=== PATIENT | female | born 1985 | race Caucasian/White ===

== ENCOUNTER 2017-08-06 14:01 | Outpatient (CLI) | payer OTHER ==
--- NOTE | 2017-08-06 17:00 | ULT ---
OB ULTRASOUND: 08/06/17 Real time images of the pelvis shows a single viable intrauterine in cephalic presentation . The placenta is posterior in location without evidence of previa. Amniotic fluid is adequate for th is stage of . Amniotic fluid index is 15. The heart rate is 153 beats per minute. Review of anatomy shows no anomalies detected. measurements are as follows: BPD 6.2 cm 25 weeks, 0 days Head circumference 22.0 cm 24 weeks, 0 days Abdominal circumference 19.2 cm 24 weeks, 0 days Femur length 3.8 cm 22 weeks, 2 days IMPRESSION: 1. Single viable intrauterine in cephalic presentation. Overall measurements correspon d to a gestational age of 23 weeks and 4 days. Estimated date of delivery is 11/29/17. 2. Placenta which is posterior in location without evidence of previa. POS: [facility]
== END 2017-08-06 14:02 | disposition home or self-care (01) ==
LOC: ULT 14:01
PROVIDERS: ATTEND Family Medicine
DX: Z34.92 Encounter for supervision of normal pregnancy, unspecified, second trimester (principal); Z3A.20 20 weeks gestation of pregnancy
CPT/HCPCS: 76805

== ENCOUNTER 2017-11-09 10:36 | Day surgery (SDC) | payer OTHER ==
[2017-11-09 11:06] VITALS: BMI 29.0
[2017-11-09 11:08] VITALS: BP 105/66; TEMP 98.5
--- NOTE | 2017-11-09 13:57 | ULT ---
BIOPHYSICAL PROFILE: 11/09/2017 HISTORY: wellbeing. Unable to detect heart tones in the physician's office. FINDINGS: There is a single intrauterine gestation in a cephalic presentation. Cardiac Doppler does demonstrat e heart tones with a heart rate of 145 beats per minute. There is a normal amount of amn iotic fluid with an amniotic fluid index of 13.6 cm. The placenta was not imaged on this examination, but imaging of the lower uterine segment does not de monstrate evidence of placenta previa. A score of 2 each was obtained for tone, breathing, movement, and amniotic fluid vo lume. IMPRESSION: 1. Single intrauterine gestation, in cephalic presentation, with heart tones documented. 2. Amniotic fluid index measuring 13.6 cm. 3. Total biophysical profile score 8/8. POS: [facility]
--- NOTE | 2017-11-09 21:21 | CON ---
DATE OF CONSULTATION: 11/09/2017 HISTORY OF PRESENT ILLNESS: This is a 32-year-old white female G2, P0 at 37 weeks gestation presente d to L&D for nonreassuring heart tone in the office today. The patient has had an uncomplicate d course. She has done very well. She has been seen on a regular basis. This morning in t he office, heart tones were being checked and a heart tone of 70 was noted. This was rep eated about a minute later and then the heart tone came back to 140s. This was somewhat nonreassurin g and therefore, the patient was sent here to Labor and Delivery for evaluation. PAST MEDICAL HISTORY: Unremarkable except for one spontaneous AB. PAST SURGICAL HISTORY: None. FAMILY AND SOCIAL HISTORY: Unremarkable. PHYSICAL EXAMINATION: VITAL SIGNS: Stable and afebrile. HEART AND LUNGS: Clear. ABDOMEN: Soft, gravid. EXTREMITIES: No edema present. ASSESSMENT: 1. Nonreassuring heart rate in the office. 2. 37-week intrauterine . PLAN: The patient was sent here to L&D. A BPP was obtained, which was an 8/8 as well as a NST, whic h was 2/2. Mother is debbie every 3-4 minutes and with mild contractions. heart tones ar e very reactive, reassuring, 150s with marked [id number] variability. Category 1 tracing. The pat ient did have 2 decels initially when she first came in and was being set up not returned . Plan to see this patient in the office in 2 days.
== END 2017-11-09 13:23 | disposition home or self-care (01) ==
LOC: L&D/OP 10:36
PROVIDERS: ATTEND Family Medicine
DX: O76 Abnormality in fetal heart rate and rhythm complicating labor and delivery (principal); Z3A.37 37 weeks gestation of pregnancy
CPT/HCPCS: 59025; 76819; 87081; 96360; 96361; 99283

== ENCOUNTER 2017-11-22 05:30 | Inpatient (IN) | payer OTHER ==
[2017-11-23] MEDS ORDERED: HYDROcodone/Acetaminophen 5/325 mg Tablet PO PRN ×2 (07:30→16:19)
[2017-11-23] MEDS ORDERED: Ibuprofen 800 MG TAB PO PRN (07:30)
[2017-11-23] MEDS ORDERED: Misoprostol 200 MCG TAB PR PRN (07:30)
[2017-11-23] MEDS ORDERED: Lidocaine 1% (PF) 30 ML VIAL SC PRN (07:30)
[2017-11-23] MEDS ORDERED: NS w/ Oxytocin 10 units 500 ML IV SCH (07:30)
[2017-11-23] MEDS ORDERED: Acetaminophen 500 MG TAB PO PRN (07:30)
[2017-11-23] MEDS ORDERED: Ondansetron HCl/PF 4 MG/2 ML Vial IVP PRN ×2 (07:30→09:46)
[2017-11-23] MEDS ORDERED: Zolpidem Tartrate 5 MG TAB PO PRN (07:30)
[2017-11-23] MEDS ORDERED: NS / Oxytocin 40 units/1000ml 1,000 ML IV PRN (07:30)
[2017-11-23] MEDS ORDERED: Promethazine HCl 25 MG/ML VIAL IM PRN ×2 (07:30→09:46)
[2017-11-23] MEDS ORDERED: Butorphanol Tartrate 1 MG/ML VIAL SLOW IVP PRN ×2 (07:30→08:31)
[2017-11-23 07:40] VITALS: BMI 29.5
[2017-11-23] MEDS: Lactated Ringer's 1,000 ML IV SCH ×2 (08:05→09:19)
[2017-11-23 08:22] LABS: Hemoglobin 11.5 g/dL (12.0-16.0); Mean Corpuscular HGB CONC 34.8 g/dL (32.0-36.0); Mean Corpuscular Hemoglobin 31.7 pg (27.0-31.0); Mean Corpuscular Volume 91.2 fL (78.0-98.0); Mean Platelet Volume 6.7 fL (7.4-10.4); Platelet Count 197 thou/uL (130-400); RBC Distribution Width 11.5 % (11.5-14.5); Red Blood Cell (RBC) Count 3.63 mill/uL (4.20-5.40); White Blood Cell (WBC) Count 10.4 thou/uL (4.8-10.8)
[2017-11-23] MEDS ORDERED: Bupivacaine 0.75% 13.4 ML, fentaNYL Citrate/PF 400 MCG in Sodium Chloride 0.9% 78.6 ML EPIDURAL SCH (08:30)
[2017-11-23] MEDS ORDERED: Butorphanol Tartrate 1 MG/ML VIAL ONE (08:30)
[2017-11-23] MEDS ORDERED: DISCONTINUE ALL PREVIOUS NARCOTICS FS SCH (08:30)
[2017-11-23 09:03] LABS: HBSAg Index 0.14 S/CO (0-0.99); Hep B Surf Ag Non-Reactive S/CO (NonReactive)
[2017-11-23] MEDS ORDERED: Eucerin (Mineral Oil/Petrolatum,White) 30 gm Jar TOP PRN (09:46)
[2017-11-23] MEDS ORDERED: Naloxone HCl 0.4 mg/ml Vial IVP PRN ×2 (09:46)
[2017-11-23] MEDS ORDERED: Lactated Ringer's 500 ML IV PRN (09:46)
[2017-11-23] MEDS ORDERED: ePHEDrine/0.9% NaCl/PF SYRINGE 50 mg/10 ml SLOW IVP PRN (09:46)
[2017-11-23] MEDS ORDERED: diphenhydrAMINE 50 MG/ML VIAL IVP PRN (09:46)
[2017-11-23] MEDS ORDERED: Acetaminophen 325 MG TAB PO PRN (09:46)
[2017-11-23] MEDS ORDERED: fentaNYL Citrate/PF 400 MCG, Bupivacaine 0.5% 20 ML in Sodium Chloride 0.9% 72 ML EPIDURAL SCH (10:00)
[2017-11-23] MEDS ORDERED: Communication Order-Pharmacy FS SCH (10:00)
[2017-11-23] MEDS ORDERED: Bupivacaine 0.25% HCL 30 ML VIAL ONE (11:11)
[2017-11-23] MEDS ORDERED: Bisacodyl 10 MG SUPP PR PRN (16:19)
[2017-11-23] MEDS ORDERED: Adacel (T-DAP) 0.5 ML VIAL IM ONE (16:19)
[2017-11-23] MEDS ORDERED: diphenhydrAMINE 25 MG CAP PO PRN (16:19)
[2017-11-23] MEDS ORDERED: NS / Oxytocin 40 units/1000ml 1,000 ML IV SCH (16:19)
[2017-11-23] MEDS ORDERED: Lanolin Ointment 7 GM TUBE TOP PRN (16:19)
[2017-11-23] MEDS ORDERED: Milk Of Magnesia 30 ML UDCUP PO PRN (16:19)
[2017-11-23] MEDS ORDERED: Misoprostol 200 MCG TAB VAG PRN (16:19)
--- NOTE | 2017-11-23 16:36 | OP ---
PREOPERATIVE DIAGNOSES: 1. Term . 2. Active labor. POSTOPERATIVE DIAGNOSES: 1. Term . 2. Active labor. PROCEDURE: Spontaneous vaginal delivery with repair of midline second degree episiotomy. ANESTHESIA: Epidural. PROCEDURE IN DETAIL: A 32-year-old white female, , taken to delivery room complete and pushi ng, prepped and draped sterilely. Delivered a baby boy with Apgars 8 at 1 minute, 9 at 5 minutes. B sonia did breathe and cry vigorously upon delivery. Delivered placenta, 3-vessel intact. Repaired a midline episiotomy with 3-0 chromic. Repaired 2 small vaginal wall tears with one single interrupted stitch of 3-0 chromic. Estimated blood loss was 350 mL. Mother and baby did well.
[2017-11-23 17:25] LABS: Syphilis Antibody Nonreactive (Nonreactive); Syphilis Antibody Index 0.04 S/CO (<1.00 Non-Reactive)
[2017-11-23] MEDS: Ferrous Sulfate 325 MG TAB PO SCH (18:07)
[2017-11-23] MEDS: Docusate Calcium (SURFAK) 240 MG CAP PO SCH (21:44)
[2017-11-24 07:07] LABS: Hemoglobin 9.9 g/dL (12.0-16.0); Mean Corpuscular HGB CONC 33.6 g/dL (32.0-36.0); Mean Corpuscular Hemoglobin 31.4 pg (27.0-31.0); Mean Corpuscular Volume 93.6 fL (78.0-98.0); Mean Platelet Volume 6.6 fL (7.4-10.4); Platelet Count 168 thou/uL (130-400); RBC Distribution Width 11.7 % (11.5-14.5); Red Blood Cell (RBC) Count 3.16 mill/uL (4.20-5.40); White Blood Cell (WBC) Count 12.4 thou/uL (4.8-10.8)
[2017-11-24] MEDS: Ferrous Sulfate 325 MG TAB PO SCH ×2 (08:22→15:21)
[2017-11-24] MEDS: Docusate Calcium (SURFAK) 240 MG CAP PO SCH ×2 (08:22→22:14)
[2017-11-24] MEDS: Prenatal Vitamin 1 TAB PO SCH (08:22)
[2017-11-24] MEDS: Ibuprofen 800 MG TAB PO PRN ×2 (14:26→22:14)
[2017-11-25] MEDS: Ferrous Sulfate 325 MG TAB PO SCH (08:11)
[2017-11-25] MEDS: Docusate Calcium (SURFAK) 240 MG CAP PO SCH (08:11)
[2017-11-25] MEDS: Prenatal Vitamin 1 TAB PO SCH (08:11)
[2017-11-25 08:31] VITALS: BP 106/59; TEMP 98.1
== END 2017-11-25 10:00 | disposition home or self-care (01) | DRG 775 ==
LOC: L&D 11-23 06:56 → 3SW 11-23 16:38
PROVIDERS: ADMIT Family Medicine; ATTEND Family Medicine
PROC: 10E0XZZ Delivery of Products of Conception, External Approach (ICD-10-PCS; principal; 2017-11-23)
PROC: 0W8NXZZ Division of Female Perineum, External Approach (ICD-10-PCS; 2017-11-23)
PROC: 0UQG7ZZ Repair Vagina, Via Natural or Artificial Opening (ICD-10-PCS; 2017-11-23)
PROC: 10907ZC Drainage of Amniotic Fluid, Therapeutic from Products of Conception, Via Natural or Artificial Opening (ICD-10-PCS; 2017-11-23)
DX: O71.4 Obstetric high vaginal laceration alone (principal); O76 Abnormality in fetal heart rate and rhythm complicating labor and delivery; Z37.0 Single live birth; Z82.79 Family history of other congenital malformations, deformations and chromosomal abnormalities; Z82.69 Family history of other diseases of the musculoskeletal system and connective tissue
CPT/HCPCS: 36415; 51702; 85027; 86780; 86850; 86900; 86901; 87340; J0595; J2001; J3010; J7050; S0020

== ENCOUNTER 2020-11-01 13:19 | Observation (INO) | payer BC, SELFPAY ==
[2020-11-01 15:15] LABS: #Eosinphils 0.1 thou/uL (0.0-0.7); #Lymphocytes 1.6 thou/uL (1.20-3.40); #Monocytes 0.5 thou/uL (0.11-0.59); #Neutrophils 5.4 thou/uL (1.40-6.50); %Basophils 0.5 % (0.0-1.0); %Eosinophils 1.6 % (0.0-10.0); %Lymphocytes 20.8 % (21.0-51.0); Hemoglobin 14.1 g/dL (12.0-16.0); Mean Corpuscular HGB CONC 32.9 g/dL (32.0-36.0); Mean Corpuscular Hemoglobin 30.5 pg (27.0-31.0); Mean Corpuscular Volume 92.7 fL (78.0-98.0); Mean Platelet Volume 6.6 fL (7.4-10.4); Platelet Count 345 thou/uL (130-400); RBC Distribution Width 11.9 % (11.5-14.5); Red Blood Cell (RBC) Count 4.63 mill/uL (4.20-5.40); White Blood Cell (WBC) Count 7.6 thou/uL (4.8-10.8)
[2020-11-01 15:19] LABS: MONO NEGATIVE CONTROL ZONE White (Negative) (White); MONO POSITIVE CONTROL Pink Line (Positive) (PINK/RED); Mononucleosis NEGATIVE (NEGATIVE)
[2020-11-01 15:20] LABS: BHCG - Serum Negative (NEGATIVE); Pregs Control Background? CLEAR/WHITE (CLR/WHITE); Pregs Control Bar Appear? YES (CONTROL BAR)
[2020-11-01] MEDS ORDERED: Lidocaine 1% PF 5 ML VIAL ONE (15:20)
[2020-11-01 15:26] LABS: INR-International Normal Ratio 1.1; PTT 37.7 sec (22.9-36.1)
[2020-11-01] MEDS ORDERED: Midazolam HCl 2 mg/2 ml Vial ONE (15:28)
[2020-11-01] MEDS ORDERED: Midazolam HCl 2 mg/2 ml Vial IVP SCH (15:30)
[2020-11-01 15:36] LABS: CRP (Inflammatory) 0.64 mg/dL (= or < 0.5)
[2020-11-01 15:36] LABS: Bacteria/HPF None Seen HPF (None Seen); Bilirubin Negative (Negative); Blood, Urine Negative (Negative); Clarity Clear (Clear); Glucose, Urine (Dipstick) Normal (Negative); Ketone, Urine Negative (Negative); Leukocyte 75 Leu/uL (Negative); Nitrite Negative (Negative); Protein, Urine (Dipstick) Negative (Neg-Trace); RBC/HPF 0-3 HPF (0-3); Specific Gravity, Urine 1.011 (1.002-1.036); Squamous Epithelial 0-3 HPF (0-3); Urobilinogen Normal mg/dL (Less than 2); WBC/HPF 0-3 HPF (0-3); pH, Urine 7.5 (5.0-9.0)
[2020-11-01 15:44] LABS: ALT (SGPT) 12 U/L (8-55); AST (SGOT) 29 U/L (5-34); Albumin 3.9 g/dL (3.5-5.0); Alkaline Phosphatase 70 U/L (40-110); Anion Gap 15 mmol/L (10-20); BUN (Urea Nitrogen) 7 mg/dL (7.0-18.7); Bilirubin, Total 0.4 mg/dL (0.2-1.2); Calc. Creatinine Clearance 0 mL/min (70-130); Carbon Dioxide 23 mmol/L (22-29); Chloride 104 mmol/L (98-107); Globulin 3.9 g/dL (2.4-3.5); Glucose 83 mg/dL (70-105); Potassium 5.3 mmol/L (3.5-5.1); Protein, Total 7.8 g/dL (6.0-8.3); Sodium 137 mmol/L (136-145)
[2020-11-01 15:56] LABS: HIV (1/2) Antibody/Antigen Non-Reactive (NonReactive); HIV 1/2 INDEX 0.09 S/CO (<1.00)
[2020-11-01 16:17] LABS: Color Of CSF Supernatant COLORLESS (Colorless); Unspun CSF Color COLORLESS (Colorless)
[2020-11-01 16:18] LABS: Tube # 1
[2020-11-01 16:29] LABS: CSF, Glucose 46 mg/dl (40-70); CSF, Protein 69 mg/dL (15-40)
[2020-11-01] MEDS ORDERED: Procaine Penicillin 1,200,000 UNITS/2 ML SYRINGE IM SCH (16:45)
[2020-11-01 16:55] LABS: CSF Source CSF; Clarity Clear (Clear); Tube # 4
[2020-11-01 16:56] LABS: CSF RBC Count - Manual 3 /cu.mm (None Seen); CSF WBC/NonHematics Count-Man 161 /cu.mm (0-5)
[2020-11-01 16:59] LABS: Cell Count Non Hematic 11 %; Lymphocytes 83 %; Segmented Neutrophils 6 %
[2020-11-01] MEDS ORDERED: Bicillin CR 1.2 MILL UNITS/2 ML SYRINGE IM SCH (17:00)
[2020-11-01] MEDS ORDERED: Acetaminophen 500 MG TAB ONE (17:08)
[2020-11-01] MEDS ORDERED: hydrALAZINE 20 MG/ML VIAL SLOW IVP PRN (19:51)
[2020-11-01 20:00] VITALS: BMI 23.2
[2020-11-01] MEDS: Morphine 2 MG/ML VIAL SLOW IVP PRN (20:10)
[2020-11-01] MEDS ORDERED: Ondansetron ODT 4 MG TAB SL PRN (20:45)
[2020-11-01] MEDS ORDERED: Acetaminophen 325 MG TAB PO PRN (20:45)
[2020-11-01] MEDS ORDERED: Ondansetron PF 4 MG/2 ML Vial IVP PRN (20:45)
[2020-11-01] MEDS ORDERED: Penicillin G Potassium 4,000,000 UNITS in Syringe 0 ML IVPB SCH (21:00)
[2020-11-01 23:32] LABS: Anion Gap 13 mmol/L (10-20); BUN (Urea Nitrogen) 8 mg/dL (7.0-18.7); Calc. Creatinine Clearance 93 mL/min (70-130); Calcium 8.7 mg/dL (7.8-10.44); Carbon Dioxide 26 mmol/L (22-29); Chloride 105 mmol/L (98-107); Glucose 91 mg/dL (70-105); Potassium 3.7 mmol/L (3.5-5.1); Sodium 140 mmol/L (136-145)
[2020-11-02 00:22] LABS: SARS-CoV-2 PCR by NAA Not Detected (NotDetected)
[2020-11-02] MEDS: Penicillin G Potassium 4 MILL.UNITS in Sodium Chloride 0.9% 50 ML IVPB SCH ×3 (04:54→12:24)
[2020-11-02] MEDS ORDERED: Penicillin G Potassium 4 MILL.UNITS in Sodium Chloride 0.9% 100 ML IVPB SCH (05:00)
[2020-11-02] MEDS ORDERED: Procaine Penicillin 1,200,000 UNITS/2 ML SYRINGE IM SCH (09:00)
[2020-11-02] MEDS ORDERED: metroNIDAZOLE 500 MG TAB PO SCH (14:15)
[2020-11-02] MEDS: Sodium Chloride 0.9% 1,000 ML IV SCH ×2 (14:19→22:20)
[2020-11-02] MEDS: cefTRIAXone\\ROCEPHIN 2 GM in Sodium Chloride 0.9% 100 ML IVPB SCH (16:09)
[2020-11-02] MEDS ORDERED: Doxycycline 100 MG CAP PO SCH ×2 (16:15→21:00)
[2020-11-02] MEDS: Morphine 2 MG/ML VIAL SLOW IVP PRN ×2 (17:34→21:21)
[2020-11-02] MEDS: metroNIDAZOLE 500 MG TAB PO SCH (22:20)
[2020-11-03] MEDS ORDERED: Doxycycline 100 MG CAP PO SCH (06:00)
[2020-11-03 06:34] LABS: Anion Gap 9 mmol/L (10-20); BUN (Urea Nitrogen) 6 mg/dL (7.0-18.7); Calc. Creatinine Clearance 99 mL/min (70-130); Calcium 8.3 mg/dL (7.8-10.44); Carbon Dioxide 27 mmol/L (22-29); Chloride 105 mmol/L (98-107); Glucose 92 mg/dL (70-105); Potassium 4.4 mmol/L (3.5-5.1); Sodium 137 mmol/L (136-145)
[2020-11-03] MEDS: metroNIDAZOLE 500 MG TAB PO SCH (07:41)
[2020-11-03] MEDS ORDERED: Fioricet 325/50/40 mg Tablet PO PRN (07:48)
[2020-11-03] MEDS ORDERED: Metoclopramide HCl 10 MG/2 ML VIAL IVP SCH (08:00)
[2020-11-03] MEDS ORDERED: diphenhydrAMINE 50 MG/ML VIAL IVP SCH (08:00)
[2020-11-03] MEDS ORDERED: Fentanyl 100 MCG/2 ML VIAL SLOW IVP SCH (08:00)
[2020-11-03] MEDS: cefTRIAXone\\ROCEPHIN 2 GM in Sodium Chloride 0.9% 100 ML IVPB SCH (14:14)
[2020-11-03 15:01] VITALS: BP 99/66; TEMP 98.1
[2020-11-03 20:16] LABS: Chlamydia by PCR Not Detected (NotDetected); GC by PCR Not Detected (NotDetected)
[2020-11-04 19:12] LABS: HIV-1 Quantitative, RNA PCR <20 copies/mL (.)
== END 2020-11-03 15:09 | disposition home or self-care (01) ==
LOC: ERS 13:19 → INTOOBSV 16:20 → ERHOLD 16:20 → T4-B 19:31
PROVIDERS: ADMIT Internal Medicine; ATTEND Internal Medicine
DX: A52.3 Neurosyphilis, unspecified (principal); N76.0 Acute vaginitis; B96.89 Other specified bacterial agents as the cause of diseases classified elsewhere; F17.210 Nicotine dependence, cigarettes, uncomplicated; E87.5 Hyperkalemia; Z20.822 Contact with and (suspected) exposure to COVID-19
CPT/HCPCS: 36415; 62270; 71045; 80048; 80053; 81003; 81015; 82550; 82945; 83735; 84157; 84703; 85025; 85060; 85610; 85652; 85730; 86140; 86308; 86592; 87070; 87081; 87205; 87389; 87480; 87491; 87510; 87536; 87591; 87660; 87899; 89051; 93005; 96372; 96374; 96375; 96376; G0378; J0696; J1200; J2250; J2270; J2510; J2540; J2765; J3010; J3490; U0003; U0005

== ENCOUNTER 2024-02-18 07:20 | Day surgery (SDC) | payer BC ==
[2024-02-14 11:13] VITALS: BMI 25.7
[2024-02-18] MEDS ORDERED: fentaNYL PF 100 MCG/2 ML SYRINGE ONE ×2 (07:26→08:50)
[2024-02-18] MEDS ORDERED: Midazolam HCl 2 mg/2 ml Vial ONE (07:27)
[2024-02-18] MEDS ORDERED: PROPOFOL 20 ML ONE (07:27)
[2024-02-18] MEDS ORDERED: Indocyanine Green 25 MG/10 ML VIAL ONE (07:28)
[2024-02-18] MEDS ORDERED: Bupivacaine 0.25% HCL 30 ML VIAL ONE (07:28)
[2024-02-18] MEDS ORDERED: EPINEPHrine 1 MG/ML VIAL ONE (07:28)
[2024-02-18] MEDS ORDERED: Rocuronium Bromide 10 MG/ML (10ML VIAL) ONE (07:29)
[2024-02-18] MEDS ORDERED: Lidocaine 2% PF 5 ML VIAL ONE (07:29)
[2024-02-18] MEDS ORDERED: Scopolamine 1 mg/72 hour Patch ONE (08:08)
[2024-02-18] MEDS ORDERED: cefOXitin 2 GM VIAL ONE (08:10)
[2024-02-18] MEDS ORDERED: Sodium Chloride 0.9% 100 ML ONE (08:11)
[2024-02-18] MEDS ORDERED: Ondansetron PF 4 MG/2 ML Vial ONE (08:34)
[2024-02-18] MEDS ORDERED: Dexamethasone 4 mg/ml Vial ONE (08:34)
[2024-02-18] MEDS ORDERED: SUGAMMADEX SODIUM 200 MG/2 ML VIAL ONE (08:38)
[2024-02-18] MEDS ORDERED: PHENYLEPHRINE-NS 100 MCG/ML 10 ML SYRINGE ONE (08:46)
[2024-02-18] MEDS ORDERED: Ketorolac Tromethamine 30 MG (1 mL) VIAL ONE (09:10)
[2024-02-18] MEDS ORDERED: Meperidine HCl/PF 25 MG (1 mL) VIAL ONE (09:46)
[2024-02-18] MEDS ORDERED: Promethazine HCl 25 MG/ML VIAL ONE (09:58)
[2024-02-18] MEDS ORDERED: fentaNYL 50 mcg/mL 1 mL Vial ONE (09:58)
[2024-02-18] MEDS ORDERED: HYDROcodone/Acetaminophen 5/325 mg Tablet ONE (11:23)
== END 2024-02-18 12:00 | disposition home or self-care (01) ==
LOC: SDC 07:20
PROVIDERS: ATTEND Surgery
PROC: 0FT44ZZ Resection of Gallbladder, Percutaneous Endoscopic Approach (ICD-10-PCS; principal; 2024-02-18)
DX: K80.10 Calculus of gallbladder with chronic cholecystitis without obstruction (principal)
CPT/HCPCS: 88304; C1889; J0171; J0665; J0694; J1100; J1885; J2001; J2175; J2250; J2405; J2550; J2704; J3010

== ENCOUNTER 2024-02-19 23:10 | Emergency (ER) | payer BC ==
[2024-02-20 00:09] LABS: #Basophils 0.03 10x3/uL (0.0-0.2); %Basophils 0.3 % (0.0-1.0); %Eosinophils 0.6 % (0.0-10.0); %Monocytes 7.2 % (0.0-10.0); %Neutrophils 74.6 % (42.0-75.0); Hematocrit 38.7 % (36.0-47.0); Hemoglobin 13.5 g/dL (12.0-16.0); Mean Corpuscular HGB CONC 34.9 g/dL (32.0-36.0); Mean Corpuscular Hemoglobin 30.3 pg (27.0-31.0); Mean Platelet Volume 10.4 fL (7.4-10.4); Platelet Count 185 10x3/uL (130-400); RBC Distribution Width 12.3 % (11.5-14.5); Red Blood Cell (RBC) Count 4.45 mill/uL (4.20-5.40)
[2024-02-20 00:12] LABS: ALT (SGPT) 66 U/L (8-55); AST (SGOT) 88 U/L (5-34); Albumin 4.1 g/dL (3.5-5.0); Alkaline Phosphatase 47 U/L (40-110); Anion Gap 14 mmol/L (10-20); BUN (Urea Nitrogen) 10 mg/dL (7.0-18.7); Bilirubin, Total 1.2 mg/dL (0.2-1.2); Calc. Creatinine Clearance 0 mL/min (70-130); Calcium 9.1 mg/dL (7.8-10.44); Carbon Dioxide 24 mmol/L (22-29); Chloride 105 mmol/L (98-107); Estimated GFR 89; Globulin 3.1 g/dL (2.4-3.5); Glucose 108 mg/dL (70-105); Potassium 3.9 mmol/L (3.5-5.1); Protein, Total 7.2 g/dL (6.0-8.3); Sodium 139 mmol/L (136-145)
[2024-02-20] MEDS ORDERED: Ondansetron PF 4 MG/2 ML Vial ONE (01:45)
[2024-02-20] MEDS ORDERED: Morphine 4 MG/ML VIAL ONE ×2 (01:45→03:23)
[2024-02-20 01:54] LABS: Bacteria/HPF 1+ HPF (None Seen); Bilirubin Negative (Negative); Blood, Urine 1+ (Negative); CAUTI Indications for Culture Pelvic or flank pain; Clarity Turbid (Clear); Glucose, Urine (Dipstick) Normal (Negative); Ketone, Urine 10 mg/dL (Negative); Leukocyte 250 Leu/uL (Negative); Nitrite Negative (Negative); Protein, Urine (Dipstick) 10 mg/dL (Neg-Trace); Specific Gravity, Urine 1.019 (1.002-1.036); Urine Culture Reflex Yes Yes; Urobilinogen Normal mg/dL (Less than 2); WBC/HPF 21-50 HPF (0-3)
[2024-02-20 01:55] LABS: Pregnancy Test - Urine (BHCG) Negative (Negative); Pregu Control Background? CLEAR/WHITE (CLR/WHITE); Pregu Control Bar Appear? YES (CONTROL BAR); Specific Gravity 1.019 (1.002-1.036)
[2024-02-20 01:58] LABS: BHCG - Serum Negative (NEGATIVE); Pregs Control Background? CLEAR/WHITE (CLR/WHITE); Pregs Control Bar Appear? YES (CONTROL BAR)
[2024-02-20] MEDS ORDERED: Ketorolac Tromethamine 30 MG (1 mL) VIAL ONE (03:23)
[2024-02-20] MEDS ORDERED: Iopamidol 370 76% 100 ML VIAL ONE (12:12)
== END 2024-02-20 04:09 | disposition home or self-care (01) ==
LOC: ERS 23:10
DX: R10.84 Generalized abdominal pain (principal); G89.18 Other acute postprocedural pain; F17.210 Nicotine dependence, cigarettes, uncomplicated
CPT/HCPCS: 36415; 74177; 80053; 81001; 81025; 83690; 84703; 85025; 87086; 96374; 96375; 96376; J1885; J2272; J2405; Q9967

== ENCOUNTER 2024-02-21 18:01 | Inpatient (IN) | payer BC ==
[2024-02-21] MEDS ORDERED: Ondansetron PF 4 MG/2 ML Vial IVP PRN (18:54)
[2024-02-21] MEDS ORDERED: Morphine 4 MG/ML VIAL SLOW IVP PRN (18:55)
[2024-02-21] MEDS: D5 1/2 NS w/20 mEq KCL 1,000 ML IV SCH (19:36)
[2024-02-22] MEDS: Morphine 2 MG/ML VIAL SLOW IVP PRN (06:42)
[2024-02-22 07:52] LABS: #Basophils 0.03 10x3/uL (0.0-0.2); %Basophils 0.4 % (0.0-1.0); %Eosinophils 6.2 % (0.0-10.0); %Lymphocytes 18.9 % (21.0-51.0); %Monocytes 7.3 % (0.0-10.0); Hematocrit 36.6 % (36.0-47.0); Mean Corpuscular HGB CONC 32.8 g/dL (32.0-36.0); Mean Corpuscular Hemoglobin 30.5 pg (27.0-31.0); Mean Corpuscular Volume 92.9 fL (78.0-98.0); Mean Platelet Volume 9.9 fL (7.4-10.4); Platelet Count 252 10x3/uL (130-400); RBC Distribution Width 12.6 % (11.5-14.5); Red Blood Cell (RBC) Count 3.94 mill/uL (4.20-5.40)
[2024-02-22 08:17] LABS: ALT (SGPT) 184 U/L (8-55); AST (SGOT) 66 U/L (5-34); Albumin 3.1 g/dL (3.5-5.0); Alkaline Phosphatase 119 U/L (40-110); Anion Gap 8 mmol/L (10-20); BUN (Urea Nitrogen) 4 mg/dL (7.0-18.7); Bilirubin, Total 1.4 mg/dL (0.2-1.2); Calc. Creatinine Clearance 96 mL/min (70-130); Calcium 8.3 mg/dL (7.8-10.44); Carbon Dioxide 23 mmol/L (22-29); Chloride 110 mmol/L (98-107); Estimated GFR 113; Glucose 95 mg/dL (70-105); Lipase 22 U/L (8-78); Potassium 4.2 mmol/L (3.5-5.1); Protein, Total 6.1 g/dL (6.0-8.3); Sodium 137 mmol/L (136-145)
[2024-02-22] MEDS: Pantoprazole 40 MG VIAL IVP SCH (08:54)
[2024-02-22] MEDS ORDERED: Iopamidol 30 ML ONE (09:57)
[2024-02-22] MEDS ORDERED: Indomethacin 50 MG SUPP ONE (10:04)
[2024-02-22] MEDS ORDERED: cefTRIAXone (ROCEPHIN) 1 GM VIAL ONE (10:11)
[2024-02-22] MEDS ORDERED: Sodium Chloride 0.9% 100 ML ONE (10:12)
[2024-02-22] MEDS ORDERED: Lidocaine 1% PF 5 ML VIAL ONE (10:13)
[2024-02-22] MEDS ORDERED: SUCCINYLCHOLINE/SOD CL,ISO/PF 200 MG/10 ML SYRINGE FS ONE (10:13)
[2024-02-22] MEDS ORDERED: Ondansetron PF 4 MG/2 ML Vial ONE (10:14)
[2024-02-22] MEDS ORDERED: PROPOFOL 20 ML ONE (10:14)
[2024-02-22] MEDS ORDERED: Dexamethasone 4 mg/ml Vial ONE (10:14)
[2024-02-22] MEDS ORDERED: fentaNYL PF 100 MCG/2 ML SYRINGE ONE (10:14)
[2024-02-22] MEDS ORDERED: Dexmedetomidine 200 MCG/2 ML VIAL ONE (10:39)
[2024-02-22] MEDS ORDERED: Glucagon 1 MG/ML KIT ONE (11:05)
[2024-02-22] MEDS ORDERED: Morphine 2 MG/ML VIAL SLOW IVP PRN (20:34)
[2024-02-22] MEDS ORDERED: Ondansetron PF 4 MG/2 ML Vial IVP PRN (20:34)
[2024-02-22] MEDS ORDERED: Morphine 4 MG/ML VIAL SLOW IVP PRN (20:34)
[2024-02-23 07:59] LABS: ALT (SGPT) 114 U/L (8-55); AST (SGOT) 28 U/L (5-34); Albumin 2.7 g/dL (3.5-5.0); Alkaline Phosphatase 102 U/L (40-110); Anion Gap 10 mmol/L (10-20); BUN (Urea Nitrogen) 5 mg/dL (7.0-18.7); Bilirubin, Total 0.7 mg/dL (0.2-1.2); Calc. Creatinine Clearance 108 mL/min (70-130); Calcium 8.2 mg/dL (7.8-10.44); Carbon Dioxide 22 mmol/L (22-29); Chloride 111 mmol/L (98-107); Estimated GFR 117; Globulin 2.7 g/dL (2.4-3.5); Glucose 99 mg/dL (70-105); Potassium 3.6 mmol/L (3.5-5.1); Protein, Total 5.4 g/dL (6.0-8.3); Sodium 139 mmol/L (136-145)
[2024-02-23 08:58] VITALS: BP 124/74; TEMP 98
[2024-02-23] MEDS: Pantoprazole 40 MG VIAL IVP SCH (08:59)
== END 2024-02-23 10:05 | disposition home or self-care (01) | DRG 395 ==
LOC: SURG A 18:01
PROVIDERS: ADMIT Surgery; ATTEND Surgery
PROC: 0F798DZ Dilation of Common Bile Duct with Intraluminal Device, Via Natural or Artificial Opening Endoscopic (ICD-10-PCS; principal; 2024-02-22)
PROC: BF101ZZ Fluoroscopy of Bile Ducts using Low Osmolar Contrast (ICD-10-PCS; 2024-02-22)
DX: K91.89 Other postprocedural complications and disorders of digestive system (principal); Z90.49 Acquired absence of other specified parts of digestive tract; Z79.899 Other long term (current) drug therapy; F17.290 Nicotine dependence, other tobacco product, uncomplicated
CPT/HCPCS: 36415; 74330; 80053; 83690; 85025; 88304; C1889; C2625; J0171; J0665; J0694; J0696; J1100; J1611; J1885; J2001; J2175; J2250; J2272; J2405; J2470; J2550; J2704; J3010; J3480; Q9967

== ENCOUNTER 2024-04-05 06:45 | Day surgery (SDC) | payer BC ==
[2024-04-04 12:21] VITALS: BMI 24.9
[2024-04-05] MEDS ORDERED: Iopamidol 15 ML ONE (07:22)
[2024-04-05] MEDS ORDERED: Indomethacin 50 MG SUPP ONE (07:24)
[2024-04-05] MEDS ORDERED: Famotidine/PF 20 mg/2ml Vial ONE (08:10)
[2024-04-05] MEDS ORDERED: Midazolam HCl 2 mg/2 ml Vial ONE ×2 (09:52→10:04)
[2024-04-05] MEDS ORDERED: PROPOFOL 20 ML ONE (10:04)
[2024-04-05] MEDS ORDERED: fentaNYL PF 100 MCG/2 ML SYRINGE ONE (10:04)
[2024-04-05] MEDS ORDERED: Glycopyrrolate 0.2 MG/ML 5 ML SYRINGE ONE (10:26)
[2024-04-05] MEDS ORDERED: NEOSTIGMINE 3 MG/3 ML SYRINGE ONE (10:26)
[2024-04-05] MEDS ORDERED: Rocuronium Bromide 10 MG/ML (10ML VIAL) ONE (10:26)
[2024-04-05] MEDS ORDERED: Ondansetron PF 4 MG/2 ML Vial ONE (10:29)
[2024-04-05] MEDS ORDERED: Dexamethasone 20 MG/5 ML VIAL ONE (10:29)
[2024-04-05] MEDS ORDERED: Lidocaine 1% PF 5 ML VIAL ONE (10:29)
== END 2024-04-05 13:00 | disposition home or self-care (01) ==
LOC: SDC 06:45
PROVIDERS: ATTEND Internal Medicine Gastroenterology
PROC: 0FPB8DZ Removal of Intraluminal Device from Hepatobiliary Duct, Via Natural or Artificial Opening Endoscopic (ICD-10-PCS; principal; 2024-04-05)
DX: K91.89 Other postprocedural complications and disorders of digestive system (principal); R79.89 Other specified abnormal findings of blood chemistry; F17.290 Nicotine dependence, other tobacco product, uncomplicated; Z90.49 Acquired absence of other specified parts of digestive tract
CPT/HCPCS: 74018; 74330; J1100; J2250; J2405; J2704; J3490; Q9967